=== PATIENT | female | born 1985 | race Caucasian/White ===

== ENCOUNTER 2017-06-07 09:10 | Inpatient (IN) | payer OTHER ==
[2017-06-07] MEDS ORDERED: Ibuprofen 800 MG TAB PO PRN (09:45)
[2017-06-07] MEDS ORDERED: Lidocaine 1% (PF) 30 ML VIAL SC PRN (09:45)
[2017-06-07] MEDS ORDERED: Acetaminophen/Codeine 30-300mg Tablet PO PRN ×4 (09:45→20:35)
[2017-06-07] MEDS ORDERED: Ondansetron HCl/PF 4 MG/2 ML Vial IVP PRN ×2 (09:45→20:35)
[2017-06-07] MEDS: Lactated Ringer's 1,000 ML IV SCH ×2 (09:45→12:38)
[2017-06-07] MEDS ORDERED: LR / Pitocin 40 units/1000 ml 1,000 ML IV PRN (09:45)
[2017-06-07] MEDS ORDERED: LR 500 ML/Oxytocin 10 units 500 ML IV SCH ×2 (09:45)
[2017-06-07] MEDS ORDERED: Promethazine HCl 25 MG/ML VIAL IM PRN ×2 (09:45→20:35)
[2017-06-07 09:50] VITALS: BMI 29.0
--- NOTE | 2017-06-07 09:52 | PDOC.LDHP ---
Labor and Delivery H&P Chief complaint: scheduled induction HPI: PT is a 32yo G1 @ 37.5 weeks who was noted to have BP 140/70 in the office today and TESSA 3cm on BPP. EFW 7#. Current gestational age (weeks): 37 Due date: 06/23/17 Dating criteria: last menstrual period, first trimester ultrasound Grav: 1 Para: 0 OB History Details: conceived w [employer] Current complications: none Abnormal US findings: Yes (TESSA 3cm) Past Medical History: allergic rhinitis, remote hx of depression Current medications: pre- vitamins Previous surgical history: none Allergies/Adverse Reactions: Allergies Allergy/AdvReac Type Severity Reaction Status Date / Time No Known Allergies Allergy Unverified 06/07/17 09:38 Social history: none - Physical Exam Abnormal vital signs: 140/70 BP in clinic General: NAD Lungs: nonlabored breathing Abdomen: gravid Extremeties: no edema FHT: category 1 - Vaginal Exam cm dilated: 1 Effacement: 25% Station: -3 - OB Labs Blood type: O RH: positive Antibody Screen: negative HIV: negative RPR: negative HEPSAg: negative 1 hour GCT: negative GBS: negative Rubella: immune - Assessment L&D Assessment: medically indicated induction - Plan Plan: admit to L&D, cervical ripening, informed consent obtained, anesthesia consult for pain management -: A/P: 32yo G1@ 37.5 weeks with olighydramnios and mild range BP in the office. Discussed IOL w Cook balloon placement and cytotec today.
[2017-06-07 10:05] LABS: Hemoglobin 12.5 g/dL (12.0-16.0); Mean Corpuscular HGB CONC 34.4 g/dL (32.0-36.0); Mean Corpuscular Hemoglobin 31.5 pg (27.0-31.0); Mean Corpuscular Volume 91.8 fl (81.0-99.0); Platelet Count 262 thou/uL (130-400); RBC Distribution Width 12.1 % (11.5-14.5); Red Blood Cell (RBC) Count 3.95 mill/uL (4.20-5.40); White Blood Cell (WBC) Count 8.8 thou/uL (4.8-10.8)
[2017-06-07] MEDS: Misoprostol 100 MCG TAB PO SCH ×3 (10:23→23:52)
[2017-06-07 10:29] LABS: ALT (SGPT) 16 U/L (8-55); AST (SGOT) 16 U/L (5-34); Albumin 3.6 g/dL (3.5-5.0); Alkaline Phosphatase 192 U/L (40-150); Anion Gap 15 mmol/L (10-20); BUN (Urea Nitrogen) 10 mg/dL (7.0-18.7); Bilirubin, Total 0.3 mg/dL (0.2-1.2); Calc. Creatinine Clearance 174 mL/min (70-130); Carbon Dioxide 21 mmol/L (22-29); Chloride 106 mmol/L (98-107); Estimated GFR-MDRD Greater than 90; Globulin 3.2 g/dL (2.4-3.5); Glucose 68 mg/dL (70-105); Protein, Total 6.8 g/dL (6.0-8.3); Sodium 138 mmol/L (136-145)
[2017-06-07 11:04] LABS: HBSAg Index 0.17 S/CO (0-0.99); Hep B Surf Ag Non-Reactive S/CO (NonReactive)
[2017-06-07] MEDS ORDERED: Bupivacaine 20 ML, Fentanyl 400 MCG in Sodium Chloride 0.9% 72 ML EPIDURAL SCH (15:00)
[2017-06-07] MEDS ORDERED: Bupivacaine 0.25% HCL 30 ML VIAL ONE (15:10)
--- NOTE | 2017-06-07 17:04 | PDOC.OPDEL ---
OB Operative/Delivery Note Delivery Dr/Surgeon: Austyn Pre-Delivery Diagnosis: medically indicated induction (oligohydramnios) Procedure/Post Delivery Dx: spontaneous vaginal delivery Weeks gestation: 37 Anesthesia: epidural - Findings A Sex: male - 1 min: 8 - 5 min: 9 - Additional Findings/Plan Placenta delivered: spontaneous Repaired Obstetrical Laceration: none Estimated blood loss: 250ml Post delivery plan: routine recovery
[2017-06-07] MEDS ORDERED: Lanolin Ointment 7 GM TUBE TOP PRN (20:35)
[2017-06-07] MEDS ORDERED: Milk Of Magnesia 30 ML UDCUP PO PRN (20:35)
[2017-06-07] MEDS ORDERED: LR / Pitocin 40 units/1000 ml 1,000 ML IV SCH (20:35)
[2017-06-07] MEDS ORDERED: Preparation H Ointment 28 GM TUBE PR PRN (20:35)
[2017-06-07] MEDS ORDERED: Bisacodyl 10 MG SUPP PR PRN (20:35)
[2017-06-07] MEDS ORDERED: Benzocaine/Menthol 20-0.5% 60 ML CAN TOP PRN (20:35)
[2017-06-07] MEDS: Ibuprofen 800 MG TAB PO SCH (21:31)
[2017-06-07] MEDS: Docusate Calcium (SURFAK) 240 MG CAP PO SCH (21:31)
[2017-06-08] MEDS: Ibuprofen 800 MG TAB PO SCH ×3 (05:23→21:15)
--- NOTE | 2017-06-08 08:07 | PDOC.EVN ---
Event Note - Event Note Event Note: S: Pt doing well, breast feeding, voiding, nl lochia. Minimal pain. Pt denies LOERA or vision changes O: Vital Signs (12 hours) Temp Pulse Resp BP 06/08/17 05:20 98.4 F 67 18 119/77 06/08/17 00:24 98.9 F 78 18 111/66 06/07/17 21:25 98.6 F 70 18 130/69 06/07/17 20:22 98.6 F 76 18 126/73 Weight Weight 214 lb Laboratory Results - last 24 hr 06/07/17 06/07/17 06/07/17 09:45 09:45 09:45 WBC 8.8 RBC 3.95 L Hgb 12.5 Hct 36.3 MCV 91.8 MCH 31.5 H MCHC 34.4 RDW 12.1 Plt Count 262 MPV 8.0 Sodium Potassium Chloride Carbon Dioxide Anion Gap BUN Creatinine Estimated GFR (MDRD) Glucose Calcium Total Bilirubin AST ALT Alkaline Phosphatase Serum Total Protein Albumin Globulin Albumin/Globulin Ratio Hep Bs Antigen Non-Reactive Blood Type O POSITIVE Antibody Screen NEGATIVE 06/07/17 09:45 WBC RBC Hgb Hct MCV MCH MCHC RDW Plt Count MPV Sodium 138 Potassium 4.0 Chloride 106 Carbon Dioxide 21 L Anion Gap 15 BUN 10 Creatinine 0.71 Estimated GFR (MDRD) Greater than 90 Glucose 68 L Calcium 9.0 Total Bilirubin 0.3 AST 16 ALT 16 Alkaline Phosphatase 192 H Serum Total Protein 6.8 Albumin 3.6 Globulin 3.2 Albumin/Globulin Ratio 1.1 L Hep Bs Antigen Blood Type Antibody Screen Gen. WA, NAD Resp. unlabored Abd. NT, ND . fundus firm at U. A/P: * PPD 1 s/p by Dr. Zaman. Recovering well, routine PP care * GHTN and oligo hydramnios. Nl labs at admission. BPs wnl at this time, cont to monitor
[2017-06-08] MEDS ORDERED: Adacel (T-DAP) 0.5 ML VIAL IM ONE (09:00)
[2017-06-08] MEDS: Ferrous Sulfate 325 MG TAB PO SCH ×2 (09:08→16:45)
[2017-06-08] MEDS: Prenatal Vitamin 1 TAB PO SCH (09:09)
[2017-06-08] MEDS: Docusate Calcium (SURFAK) 240 MG CAP PO SCH ×2 (09:09→21:15)
[2017-06-09] MEDS: Ibuprofen 800 MG TAB PO SCH (05:00)
[2017-06-09 08:15] VITALS: BP 114/69; TEMP 98.7
[2017-06-09] MEDS: Ferrous Sulfate 325 MG TAB PO SCH (09:43)
[2017-06-09] MEDS: Prenatal Vitamin 1 TAB PO SCH (09:44)
[2017-06-09] MEDS: Docusate Calcium (SURFAK) 240 MG CAP PO SCH (09:44)
--- NOTE | 2017-06-09 13:50 | DIS ---
DATE OF ENCOUNTER: 06/09/2017 DATE OF ADMISSION: 06/07/2017 DATE OF DISCHARGE: 06/09/2017 ADMITTING DIAGNOSES: Gestational hypertension and oligohydramnios. DISCHARGE DIAGNOSES: Gestational hypertension and oligohydramnios. PROCEDURE: Induction of labor. CONSULTATIONS: None. HOSPITAL COURSE: Patient is a 32-year-old G1 now P1 female, who came to Labor and Delivery at 37 wee ks and 5 days for an induction of labor due to oligohydramnios of 3 cm and elevated blood pressures. Induction was successful and resulted in uncomplicated term spontaneous vaginal delivery. Her posto perative course has been uncomplicated with blood pressures in the normal range. Today is day #2, patient is tolerating p.o., voiding on her own, having good pain control and decreased lochi a. DISCHARGE PHYSICAL EXAMINATION: VITAL SIGNS: Today, blood pressure is 114/68, temperature 98.3, pulse is 72, respiratory rate 16. GENERAL: She appears to be in no acute distress. She is alert and oriented and cooperative and plea kirby to interact with. Fundus is firm. EXTREMITIES: Nontender. Nonedematous. The patient will be discharged to home with instructions to follow up with her primary OB, Dr. Zaman, in 6 weeks. She has been given instructions to seek attention sooner if she experiences fever, incr easing pain, or bleeding. Patient can take ibuprofen [id number] as needed for pain control.
== END 2017-06-09 12:30 | disposition home or self-care (01) | DRG 775 ==
LOC: L&D 09:10 → 3SW 20:19
PROVIDERS: ADMIT Obstetrics & Gynecology; ATTEND Obstetrics & Gynecology
PROC: 10E0XZZ Delivery of Products of Conception, External Approach (ICD-10-PCS; principal; 2017-06-07)
PROC: 0U7C7ZZ Dilation of Cervix, Via Natural or Artificial Opening (ICD-10-PCS; 2017-06-07)
PROC: 3E033VJ Introduction of Other Hormone into Peripheral Vein, Percutaneous Approach (ICD-10-PCS; 2017-06-07)
DX: O41.03X0 Oligohydramnios, third trimester, not applicable or unspecified (principal); O13.4 Gestational [pregnancy-induced] hypertension without significant proteinuria, complicating childbirth; Z3A.37 37 weeks gestation of pregnancy; Z37.0 Single live birth
CPT/HCPCS: 51702; 80053; 85027; 86850; 86900; 86901; 87340; J2001; J2405; J3010; J3490; J7050; J7120; S0020